=== PATIENT | female | born 1985 | race Caucasian/White ===

== ENCOUNTER 2016-08-12 18:06 | Emergency (ER) | payer SELFPAY ==
[2016-08-12 18:55] VITALS: TEMP 97.7
--- NOTE | 2016-08-12 20:52 | EDPHY ---
H & P Stated Complaint: pain/plugged l ear HPI/ROS: CHIEF COMPLAINT: Left ear plugged HISTORY OF PRESENT ILLNESS: This is a healthy 31-year-old female who reports pressure in the left ear. Her hearing is diminished. She believes that she has ear wax that is causing the problem. She has had this problem in the past. She has does not have ear pain. She denies ear drainage. No recent fever, cough, sore throat or other concerns. She has had a mild headache on and off since yesterday. REVIEW OF SYSTEMS: A ten point review of systems was performed and is negative with the exception of the items mentioned in the HPI. Source: Patient Exam Limitations: No limitations - Personal History LMP (Females 10-55): 1-7 Days Ago Current Tetanus/Diphtheria Vaccine: Unsure - Medical/Surgical History Hx Asthma: No Hx Chronic Respiratory Disease: No Hx Diabetes: No Hx Cardiac Disease: No Hx Renal Disease: No Hx Cirrhosis: No Hx Alcoholism: No Hx HIV/AIDS: No Hx Splenectomy or Spleen Trauma: No Other PMH: denies - Social History Smoking Status: Never smoked - Physical Exam Exam: General Appearance: Alert. Vital signs reviewed. A focused exam was performed. Eyes: Pupils equal and round, no conjunctival injection, no discharge. Anicteric. ENT, Mouth: Mucous membranes are moist, no oropharyngeal erythema or edema. Cerumen impaction left ear. There is a small amount of cerumen in the right external auditory canal, tympanic membrane fully visible. Tympanic membrane is normal on the right. Neck: No lymphadenopathy. Respiratory: Lungs are clear to auscultation; no wheezes, rales, or rhonchi. Cardiovascular: Regular rate and rhythm; no murmur, rub, or gallop. Skin: Warm and dry, no rashes on exposed skin, normal color. Neurological: Alert and oriented. Moving all four extremities easily and equally. Psychiatric: Normal affect. Constitutional: Initial Vital Signs Temperature (C) 36.5 C 08/12/16 18:52 Heart Rate 55 L 08/12/16 18:52 Respiratory Rate 18 08/12/16 18:52 Blood Pressure 127/78 H 08/12/16 18:52 O2 Sat (%) 99 08/12/16 18:52 O2 Delivery Mode Room Air Allergies/Adverse Reactions: No Known Allergies Allergy (Unverified 08/12/16 18:52) Home Medications: Medication Instructions Recorded NK [No Known Home Meds] 08/12/16 Medical Decision Making ED Course/Re-evaluation: Left ear cerumen disimpaction will be performed by the nursing staff. Disimpaction performed. On re-exam there is still some wax remaining. I recommend Cerumenex, to be used at home. I do not suspect infection. Departure - Departure Disposition: Home, Routine, Self-Care Clinical Impression: Cerumen impaction Qualifiers: Laterality: left Qualified Code(s): H61.22 - Impacted cerumen, left ear Condition: Good Instructions: Cerumen Impaction (ED) Additional Instructions: I am referring you to Dr. Lexus Guzmán for primary care as needed. We have gotten as much wax removed as we think we safely can. I recommend that you buy some Cerumenex in the drug store and use it according to the packaging instructions Referrals: Lexus Guzmán MD [[facility] [place] - As per Instructions
[2016-08-12] MEDS ORDERED: HYDROGEN PEROXIDE 236 ML BOTTLE TP ONE (21:08)
[2016-08-12 21:40] VITALS: BP 109/72; PULSE 53; RESP 14; O2SAT 100
== END 2016-08-12 21:40 | disposition home or self-care (01) ==
PROC: 3E1B78Z Irrigation of Ear using Irrigating Substance, Via Natural or Artificial Opening (ICD-10-PCS; principal; 2016-08-12)
DX: H61.22 Impacted cerumen, left ear (principal)